=== PATIENT | female | born 1945 | race Two or more races ===

== ENCOUNTER 2021-02-28 07:31 | Emergency (ER) | payer OTHER, MEDICAID ==
[~2021-02-28] VITALS: Ht 160 cm; Wt 59.0 kg
[2021-02-28] MEDS ORDERED: PROMETHAZINE HCL 25 MG/ML 1ML IV PRN (08:30)
[2021-02-28] MEDS ORDERED: HYDROmorphone HCL 2 MG/ML VL IV ONE (08:30)
[2021-02-28] MEDS ORDERED: SODIUM CHLORIDE 0.9% 1,000 ML IV ONE (08:30)
[2021-02-28] MEDS ORDERED: SODIUM CHLORIDE 0.9% 500 ML IVB ONE (08:30)
[2021-02-28 08:49] LABS: Basophils # (auto) 0.1 10 ^3/uL (0-0.2); Basophils % (auto) 0.9 % (0.0-2.0); Eosinophils # (auto) 0.9 10 ^3/uL (0-0.8); Eosinophils % (auto) 9.8 % (0.0-7.0); Hematocrit 35.1 % (36.0-46.0); Hemoglobin 11.9 g/dL (12.2-16.2); Lymphocytes # (auto) 3.5 10 ^3/uL (0.4-5.4); Lymphocytes % (auto) 37.9 % (10.0-50.0); Mean Corpuscular Hemoglobin 28.6 pg (28.0-32.0); Mean Corpuscular Hgb Conc. 33.8 g/dL (32.0-36.0); Mean Corpuscular Volume 84.5 fL (80.0-100.0); Monocytes # (auto) 0.6 10 ^3/uL (0-1.3); Monocytes % (auto) 6.2 % (0.0-12.0); Neutrophils # (auto) 4.2 10 ^3/uL (1.6-8.6); Neutrophils % (auto) 45.2 % (37.0-80.0); Nucleated Red Blood Cells % 0.2 %; Red Blood Cells 4.15 10^6/uL (4.0-5.20); Red Cell Distribution Width 14.7 % (11.8-14.3); White Blood Cell 9.2 10^3/uL (4.4-10.8)
[2021-02-28 09:11] LABS: Calcium 8.9 mg/dL (8.5-10.1)
[2021-02-28 09:15] LABS: BUN/Creatinine Ratio 24.2; Bilirubin, Total 0.6 mg/dL (0.2-1.0); Magnesium 2.1 mg/dL (1.6-2.6); Total Protein 7.9 g/dL (6.4-8.2)
[2021-02-28] MEDS ORDERED: cloNIDine HCL 0.1 MG TAB PO ONE (09:30)
[2021-02-28 10:47] LABS: Urine Bacteria NONE SEEN /hpf (None Seen); Urine Blood Negative /uL (Negative); Urine Specific Gravity 1.008 (1.001-1.035); Urine WBC <1 /hpf (0 - 5)
[2021-02-28 15:39] VITALS: BP 135/63
== END 2021-02-28 18:01 | disposition home or self-care (01) ==
LOC: ER 07:31 → EDBD 07:31 → ER 18:00
DX: R25.2 Cramp and spasm (principal); M47.816 Spondylosis without myelopathy or radiculopathy, lumbar region; E11.65 Type 2 diabetes mellitus with hyperglycemia; I10 Essential (primary) hypertension; E11.21 Type 2 diabetes mellitus with diabetic nephropathy; M48.00 Spinal stenosis, site unspecified; E78.5 Hyperlipidemia, unspecified; Z88.0 Allergy status to penicillin
CPT/HCPCS: 36415; 71045; 72131; 74176; 80053; 81001; 83690; 83735; 85025; 93005; 96361; 96374; 96375; 99285; J1170; J2550